=== PATIENT | male | born 1960 | race Caucasian/White ===

== ENCOUNTER 2021-10-27 17:33 | Inpatient (IN) | payer MEDICARE, OTHER ==
[~2021-10-27] VITALS: Ht 182.9 cm; Wt 91.9 kg
[2021-10-27] VITALS (9 sets, daily range): BP systolic 112–140; BP diastolic 68–100
[~2021-10-27 17:33] MED LIST: AEC81 PO; CARV12.580 PO
[2021-10-27 18:13] LABS: BASOPHILS % (AUTO) 0.6 % (0.0-5.0); EOSINOPHILS % (AUTO) 2.3 % (0.0-8.0); HEMATOCRIT 41.9 % (42-54); LYMPHOCYTES % (AUTO) 17.3 % (21.0-51.0); MEAN CORPUSCULAR HEMOGLOBIN 31.6 pg (27.0-33.0); MEAN CORPUSCULAR HGB CONC 32.9 g/dL (32.0-36.0); MEAN CORPUSCULAR VOLUME 95.9 fL (79-99); MONOCYTES % (AUTO) 8.3 % (3.0-13.0); NEUTROPHILS % (AUTO) 71.2 % (40.0-77.0); PLATELET COUNT (AUTO) 188 K/uL (130-400); RED BLOOD CELL COUNT(AUTO) 4.37 MIL/uL (4.50-6.20); RED CELL DISTRIBUTION WIDTH 16.4 % (11.0-15.5); WHITE BLOOD COUNT (AUTO) 10.1 K/uL (4.8-10.8)
[2021-10-27 18:40] LABS: INR 1.03 (0.85-1.15); PROTHROMBIN TIME 11.2 SEC (9.6-11.6)
[2021-10-27 18:41] LABS: PARTIAL THROMBOPLASTIN TIME 24.5 SEC (26.3-35.5)
[2021-10-27 18:45] LABS: B-TYPE NATRIURETIC PEPTIDE 2160 pg/mL (0-100)
[2021-10-27 18:46] LABS: CREATININE 1.9 mg/dL (0.5-1.5); MAGNESIUM 1.8 mg/dL (1.80-2.40); TOTAL PROTEIN, SERUM 6.7 g/dL (6.0-8.3)
[2021-10-27 19:21] LABS: APPEARANCE,URINE CLEAR (CLEAR); BILIRUBIN,URINE NEGATIVE (NEGATIVE); COLOR,URINE YELLOW (YELLOW); GLUCOSE, URINE (UA) NEGATIVE (NEGATIVE); KETONES,URINE NEGATIVE (NEGATIVE); LEUKOCYTE ESTERASE ,URINE NEGATIVE (NEGATIVE); NITRATE,URINE NEGATIVE (NEGATIVE); OCCULT BLOOD,URINE NEGATIVE (NEGATIVE); PH,URINE 5.5 (5.0-8.0); PROTEIN,URINE NEGATIVE (NEGATIVE)
[2021-10-27] MEDS ORDERED: DOPAMINE HCL 400 MG/D5%-WATER 250 ML IV SCH (20:00)
[2021-10-27] MEDS ORDERED: POTASSIUM CHLORIDE 20MEQ/100ML 100 ML IV PRN (20:00)
[2021-10-27] MEDS ORDERED: DiphenhydrAMINE HCL 50 MG/ML VIAL IV PRN (20:00)
[2021-10-27] MEDS ORDERED: ONDANSETRON 4MG INJ IV PRN (20:00)
[2021-10-27] MEDS ORDERED: ACETAMINOPHEN 325 MG TAB PO PRN ×2 (20:00)
[2021-10-27] MEDS ORDERED: LIDOCAINE HCL-MPF 1% 2ML VIAL IV PRN (20:00)
[2021-10-27] MEDS: FAMOTIDINE 20MG VIAL IV SCH (21:21)
[2021-10-27] MEDS: MORPHINE 2 MG SYG IVP PRN (22:00)
[2021-10-27] MEDS ORDERED: ATOR40TA69 PO (22:21)
[2021-10-27] MEDS ORDERED: BUME2TAB5 PO (22:21)
[2021-10-27] MEDS ORDERED: SPIR25TA6 PO (22:21)
[2021-10-27] MEDS ORDERED: SENN-180 PO (22:21)
[2021-10-27] MEDS ORDERED: OMEP40CA21 PO (22:21)
[2021-10-27] MEDS ORDERED: ALLO100T PO (22:21)
[2021-10-27] MEDS ORDERED: FLUT1BLS3 IH (22:21)
[2021-10-27] MEDS ORDERED: METO-408 PO (22:21)
[2021-10-27] MEDS ORDERED: GABA-529 PO (22:21)
[2021-10-28] VITALS (56 sets, daily range): BP systolic 82–137; BP diastolic 48–87
[2021-10-28] MEDS ORDERED: POTASSIUM CHLORIDE 10MEQ/100ML 100 ML IV PRN (01:00)
[2021-10-28] MEDS ORDERED: POTASSIUM CHLORIDE 10% ELIXIR 20 MEQ/15 ML UDCUP PO PRN (01:00)
[2021-10-28] MEDS: KCL 20 MEQ ERTAB PO PRN ×4 (01:05→10:12)
[2021-10-28] MEDS ORDERED: [UNRECOGNIZED DRUG - OTHER] PO PRN (08:00)
[2021-10-28] MEDS ORDERED: SENNOSIDES PO PRN ×2 (08:00→09:00)
[2021-10-28] MEDS ORDERED: DOCUSATE SODIUM PO PRN ×2 (08:00→09:00)
[2021-10-28] MEDS: FUROSEMIDE 40MG VIAL IV SCH ×2 (08:12→20:13)
[2021-10-28] MEDS: ASPIRIN 81 MG EC TAB PO SCH (08:13)
[2021-10-28] MEDS: ALLOPURINOL 100 MG TABLET PO SCH (08:13)
[2021-10-28] MEDS: METOPROLOL SUCCINATE 25 MG TAB.SR.24H PO SCH (08:13)
[2021-10-28] MEDS: SPIRONOLACTONE 25 MG TAB PO SCH (08:13)
[2021-10-28] MEDS: GABAPENTIN 100 MG CAPSULE PO SCH ×4 (08:14→20:13)
[2021-10-28] MEDS: TRELEGY PO SCH (08:15)
[2021-10-28] MEDS: DOBUTAMINE 250MG/D5 250ML 250 ML IV SCH (08:17)
[2021-10-28] MEDS ORDERED: CARVEDILOL 12.5 MG TABLET PO SCH (09:00)
[2021-10-28] MEDS ORDERED: NON-FORMULARY MEDICATION 1 EACH (Fluticasone/Umeclidin/Vilanter (Trelegy Ellipta 100-62.5- IH SCH (09:00)
[2021-10-28 13:00] LABS: MAGNESIUM 1.9 mg/dL (1.80-2.40); POTASSIUM 4.2 mmol/L (3.5-5.1)
[2021-10-28] MEDS: MAGNESIUM 2GM PREMIX 50ML 50 ML IV PRN (14:30)
[2021-10-28] MEDS ORDERED: ENOXAPARIN SODIUM 100 MG/1 ML SQ SCH (18:00)
[2021-10-28] MEDS: FAMOTIDINE 20MG VIAL IV SCH (20:13)
[2021-10-28] MEDS: ATORVASTATIN 40 MG TABLET PO SCH (20:13)
[2021-10-28] MEDS: MORPHINE 2 MG SYG IVP PRN (20:14)
[2021-10-29] VITALS (47 sets, daily range): BP systolic 82–164; BP diastolic 41–94
[2021-10-29] MEDS: DOBUTAMINE 250MG/D5 250ML 250 ML IV SCH ×2 (01:14→17:28)
[2021-10-29 03:49] LABS: EOSINOPHILS % (AUTO) 4.6 % (0.0-8.0); HEMATOCRIT 39.9 % (42-54); LYMPHOCYTES % (AUTO) 23.8 % (21.0-51.0); MEAN CORPUSCULAR HEMOGLOBIN 31.9 pg (27.0-33.0); MEAN CORPUSCULAR HGB CONC 32.3 g/dL (32.0-36.0); MEAN CORPUSCULAR VOLUME 98.5 fL (79-99); MONOCYTES % (AUTO) 9.2 % (3.0-13.0); PLATELET COUNT (AUTO) 161 K/uL (130-400); RED BLOOD CELL COUNT(AUTO) 4.05 MIL/uL (4.50-6.20); RED CELL DISTRIBUTION WIDTH 16.5 % (11.0-15.5); WHITE BLOOD COUNT (AUTO) 7.2 K/uL (4.8-10.8)
[2021-10-29 03:53] LABS: HEMOGLOBIN A1C 8.3 % (4.0-6.0)
[2021-10-29 04:11] LABS: POTASSIUM 4.1 mmol/L (3.5-5.1); THYROID STIMULATING HORMONE 5.94 uIU/mL (0.36-3.74); TOTAL PROTEIN, SERUM 6.5 g/dL (6.0-8.3)
[2021-10-29] MEDS ORDERED: POTASSIUM CHLORIDE 20MEQ/100ML 100 ML IV PRN (08:00)
[2021-10-29] MEDS ORDERED: DEXTROSE 50%-WATER 50 ML DISP.SYRIN IV PRN (08:00)
[2021-10-29] MEDS ORDERED: LIDOCAINE HCL-MPF 1% 2ML VIAL IV PRN (08:00)
[2021-10-29] MEDS ORDERED: GLUCAGON 1MG KIT 1 MG ML IM PRN (08:00)
[2021-10-29] MEDS ORDERED: POTASSIUM CHLORIDE 10% ELIXIR 20 MEQ/15 ML UDCUP PO PRN (08:00)
[2021-10-29] MEDS ORDERED: MAGNESIUM 2GM PREMIX 50ML 50 ML IV PRN (08:00)
[2021-10-29] MEDS: GABAPENTIN 100 MG CAPSULE PO SCH ×3 (08:20→20:15)
[2021-10-29] MEDS: ASPIRIN 81 MG EC TAB PO SCH (08:20)
[2021-10-29] MEDS: FUROSEMIDE 40MG VIAL IV SCH ×2 (08:20→20:15)
[2021-10-29] MEDS: SPIRONOLACTONE 25 MG TAB PO SCH (08:20)
[2021-10-29] MEDS: ALLOPURINOL 100 MG TABLET PO SCH (08:21)
[2021-10-29] MEDS: ENOXAPARIN SODIUM 100 MG/1 ML SQ SCH (08:21)
[2021-10-29] MEDS: TRELEGY PO SCH (08:32)
[2021-10-29] MEDS: METOPROLOL SUCCINATE 25 MG TAB.SR.24H PO SCH (09:14)
[2021-10-29] MEDS: INSULIN HUMULIN R 100 UNIT/ML 3ML SQ SCH ×3 (11:40→21:00)
[2021-10-29] MEDS: FAMOTIDINE 20MG VIAL IV SCH (20:15)
[2021-10-29] MEDS: ATORVASTATIN 40 MG TABLET PO SCH (20:15)
[2021-10-29] MEDS: MORPHINE 2 MG SYG IVP PRN (20:16)
[2021-10-30 00:44] VITALS: BP 107/55
[2021-10-30 04:30] VITALS: BP 97/49
[2021-10-30 06:34] LABS: HEMATOCRIT 40.8 % (42-54); MEAN CORPUSCULAR HEMOGLOBIN 31.7 pg (27.0-33.0); MEAN CORPUSCULAR HGB CONC 32.6 g/dL (32.0-36.0); MEAN CORPUSCULAR VOLUME 97.1 fL (79-99); RED BLOOD CELL COUNT(AUTO) 4.2 MIL/uL (4.50-6.20); RED CELL DISTRIBUTION WIDTH 16.8 % (11.0-15.5); WHITE BLOOD COUNT (AUTO) 6.1 K/uL (4.8-10.8)
[2021-10-30 06:40] LABS: CREATININE 1.8 mg/dL (0.5-1.5); POTASSIUM 3.3 mmol/L (3.5-5.1)
[2021-10-30 07:30] VITALS: BP 104/70
[2021-10-30] MEDS: INSULIN HUMULIN R 100 UNIT/ML 3ML SQ SCH ×4 (07:30→21:00)
[2021-10-30] MEDS: FUROSEMIDE 40MG VIAL IV SCH ×2 (09:55→20:57)
[2021-10-30] MEDS: DOBUTAMINE 250MG/D5 250ML 250 ML IV SCH (09:56)
[2021-10-30] MEDS: ASPIRIN 81 MG EC TAB PO SCH (09:58)
[2021-10-30] MEDS: ENOXAPARIN SODIUM 100 MG/1 ML SQ SCH (09:58)
[2021-10-30] MEDS: SPIRONOLACTONE 25 MG TAB PO SCH (09:58)
[2021-10-30] MEDS: GABAPENTIN 100 MG CAPSULE PO SCH ×3 (09:59→20:58)
[2021-10-30] MEDS: METOPROLOL SUCCINATE 25 MG TAB.SR.24H PO SCH ×2 (09:59→20:57)
[2021-10-30] MEDS: TRELEGY PO SCH (09:59)
[2021-10-30] MEDS: ALLOPURINOL 100 MG TABLET PO SCH (09:59)
[2021-10-30 12:00] VITALS: BP 95/69
[2021-10-30] MEDS: KCL 20 MEQ ERTAB PO PRN ×2 (14:21→18:56)
[2021-10-30 16:49] VITALS: BP 104/64
[2021-10-30 20:00] VITALS: BP 107/67
[2021-10-30] MEDS: ATORVASTATIN 40 MG TABLET PO SCH (20:57)
[2021-10-30] MEDS: FAMOTIDINE 20MG VIAL IV SCH (20:57)
[2021-10-30] MEDS: MORPHINE 2 MG SYG IVP PRN (21:25)
[2021-10-31] VITALS (7 sets, daily range): BP systolic 85–112; BP diastolic 51–75
[2021-10-31] MEDS: INSULIN HUMULIN R 100 UNIT/ML 3ML SQ SCH ×4 (06:43→20:09)
[2021-10-31] MEDS: MORPHINE 2 MG SYG IVP PRN ×3 (06:59→20:09)
[2021-10-31] MEDS: ENOXAPARIN SODIUM 100 MG/1 ML SQ SCH (07:59)
[2021-10-31] MEDS: FUROSEMIDE 40MG VIAL IV SCH (07:59)
[2021-10-31] MEDS: ALLOPURINOL 100 MG TABLET PO SCH (07:59)
[2021-10-31] MEDS: GABAPENTIN 100 MG CAPSULE PO SCH ×3 (08:00→20:08)
[2021-10-31] MEDS: SPIRONOLACTONE 25 MG TAB PO SCH (08:00)
[2021-10-31] MEDS: ASPIRIN 81 MG EC TAB PO SCH (08:00)
[2021-10-31] MEDS: METOPROLOL SUCCINATE 25 MG TAB.SR.24H PO SCH ×2 (08:00→20:08)
[2021-10-31] MEDS: TRELEGY PO SCH (08:00)
[2021-10-31 08:14] LABS: CREATININE 1.8 mg/dL (0.5-1.5); POTASSIUM 4.2 mmol/L (3.5-5.1)
[2021-10-31] MEDS ORDERED: VANCOMYCIN 1G/250ML KIT 250 ML IV SCH (09:00)
[2021-10-31] MEDS ORDERED: 0.9% NACL 250ML 250 ML ONE (09:53)
[2021-10-31] MEDS: FUROSEMIDE 40 MG TABLET PO SCH (16:57)
[2021-10-31] MEDS: ATORVASTATIN 40 MG TABLET PO SCH (20:08)
[2021-10-31] MEDS: FAMOTIDINE 20MG VIAL IV SCH (20:08)
[2021-10-31] MEDS: DOBUTAMINE 250MG/D5 250ML 250 ML IV SCH (20:19)
[2021-11-01] VITALS (11 sets, daily range): BP systolic 92–140; BP diastolic 55–80
[2021-11-01 03:48] LABS: HEMATOCRIT 41.9 % (42-54); MEAN CORPUSCULAR HEMOGLOBIN 31.5 pg (27.0-33.0); MEAN CORPUSCULAR HGB CONC 31.7 g/dL (32.0-36.0); MEAN CORPUSCULAR VOLUME 99.3 fL (79-99); RED BLOOD CELL COUNT(AUTO) 4.22 MIL/uL (4.50-6.20); RED CELL DISTRIBUTION WIDTH 17.2 % (11.0-15.5); WHITE BLOOD COUNT (AUTO) 5.8 K/uL (4.8-10.8)
[2021-11-01 03:58] LABS: INR 1.04 (0.85-1.15); PROTHROMBIN TIME 11.3 SEC (9.6-11.6)
[2021-11-01 03:59] LABS: PARTIAL THROMBOPLASTIN TIME 26.3 SEC (26.3-35.5)
[2021-11-01 04:00] LABS: POTASSIUM 4.5 mmol/L (3.5-5.1)
[2021-11-01] MEDS: INSULIN HUMULIN R 100 UNIT/ML 3ML SQ SCH ×4 (05:56→20:02)
[2021-11-01] MEDS ORDERED: VANCOMYCIN 1G VIAL IVPB ONE (07:00)
[2021-11-01] MEDS ORDERED: VANCOMYCIN 1G 1 GM in 0.9% NACL 250ML 250 ML IV PRN (08:00)
[2021-11-01] MEDS: SPIRONOLACTONE 25 MG TAB PO SCH (08:12)
[2021-11-01] MEDS: ALLOPURINOL 100 MG TABLET PO SCH (08:13)
[2021-11-01] MEDS: TRELEGY PO SCH (08:13)
[2021-11-01] MEDS: GABAPENTIN 100 MG CAPSULE PO SCH ×3 (08:13→20:05)
[2021-11-01] MEDS: ASPIRIN 81 MG EC TAB PO SCH (08:13)
[2021-11-01] MEDS: METOPROLOL SUCCINATE 25 MG TAB.SR.24H PO SCH ×2 (08:13→20:01)
[2021-11-01] MEDS: FUROSEMIDE 40 MG TABLET PO SCH ×2 (08:13→17:09)
[2021-11-01] MEDS: MORPHINE 2 MG SYG IVP PRN ×2 (10:48→20:07)
[2021-11-01] MEDS ORDERED: VANCOMYCIN 1G/250ML KIT 500 ML IV ONE (12:27)
[2021-11-01] MEDS ORDERED: BUPIVACAINE/PF 0.25% 30ML VIAL IJ ONE (12:27)
[2021-11-01] MEDS ORDERED: LIDOCAINE HCL 1% 20 ML VIAL ONE (12:27)
[2021-11-01] MEDS ORDERED: MEPERIDINE-PF 50 MG/ML SYG ONE (13:14)
[2021-11-01] MEDS ORDERED: MIDAZOLAM HCL 1 MG/ML 2ML VIAL ONE ×3 (13:14→13:48)
[2021-11-01] MEDS ORDERED: IODIXANOL 320 MG/ML 100 ML VIAL ONE (13:20)
[2021-11-01] MEDS ORDERED: MEPERIDINE-PF 25 MG/ML SYG ONE (13:48)
[2021-11-01] MEDS ORDERED: BACITRACIN 1 EACH PACKET TP ONE (14:32)
[2021-11-01 16:09] LABS: CREATININE 1.7 mg/dL (0.5-1.5); POTASSIUM 3.7 mmol/L (3.5-5.1)
[2021-11-01] MEDS: FAMOTIDINE 20MG VIAL IV SCH (20:00)
[2021-11-01] MEDS: ATORVASTATIN 40 MG TABLET PO SCH (20:01)
[2021-11-02] VITALS: BP 108/64
[2021-11-02 04:00] VITALS: BP 119/70
[2021-11-02 04:13] LABS: BASOPHILS % (AUTO) 0.5 % (0.0-5.0); EOSINOPHILS % (AUTO) 2.9 % (0.0-8.0); HEMATOCRIT 42.2 % (42-54); LYMPHOCYTES % (AUTO) 20.9 % (21.0-51.0); MEAN CORPUSCULAR HEMOGLOBIN 31.5 pg (27.0-33.0); MEAN CORPUSCULAR VOLUME 98.6 fL (79-99); MONOCYTES % (AUTO) 10.7 % (3.0-13.0); NEUTROPHILS % (AUTO) 64.6 % (40.0-77.0); PLATELET COUNT (AUTO) 151 K/uL (130-400); RED BLOOD CELL COUNT(AUTO) 4.28 MIL/uL (4.50-6.20); RED CELL DISTRIBUTION WIDTH 17.2 % (11.0-15.5); WHITE BLOOD COUNT (AUTO) 5.5 K/uL (4.8-10.8)
[2021-11-02 04:38] LABS: CREATININE 1.6 mg/dL (0.5-1.5); MAGNESIUM 1.9 mg/dL (1.80-2.40); PHOSPHORUS 3.6 mg/dL (2.5-4.9); POTASSIUM 3.7 mmol/L (3.5-5.1)
[2021-11-02] MEDS: KCL 20 MEQ ERTAB PO PRN (05:59)
[2021-11-02] MEDS: MAGNESIUM 2GM PREMIX 50ML 50 ML IV PRN (06:00)
[2021-11-02] MEDS: INSULIN HUMULIN R 100 UNIT/ML 3ML SQ SCH ×4 (06:09→21:10)
[2021-11-02 08:00] VITALS: BP 110/60
[2021-11-02] MEDS: ASPIRIN 81 MG EC TAB PO SCH (08:07)
[2021-11-02] MEDS: SPIRONOLACTONE 25 MG TAB PO SCH (08:07)
[2021-11-02] MEDS: FUROSEMIDE 40 MG TABLET PO SCH ×2 (08:08→17:00)
[2021-11-02] MEDS: GABAPENTIN 100 MG CAPSULE PO SCH ×3 (08:08→20:45)
[2021-11-02] MEDS: ALLOPURINOL 100 MG TABLET PO SCH (08:08)
[2021-11-02] MEDS: METOPROLOL SUCCINATE 25 MG TAB.SR.24H PO SCH ×2 (08:08→20:45)
[2021-11-02] MEDS: TRELEGY PO SCH (08:09)
[2021-11-02] MEDS: DOBUTAMINE 250MG/D5 250ML 250 ML IV SCH (08:21)
[2021-11-02 11:26] VITALS: BP 109/69
[2021-11-02] MEDS: HYDROCODONE/ACETAMINOPHEN 5/325 MG TAB PO PRN ×2 (14:23→20:45)
[2021-11-02 15:43] VITALS: BP 93/59
[2021-11-02 19:03] VITALS: BP 109/78
[2021-11-02] MEDS: FAMOTIDINE 20MG VIAL IV SCH (20:44)
[2021-11-02] MEDS: ATORVASTATIN 40 MG TABLET PO SCH (20:44)
[2021-11-03 00:03] VITALS: BP 102/78
[2021-11-03 03:03] VITALS: BP 96/63
[2021-11-03 03:59] LABS: BASOPHILS % (AUTO) 0.7 % (0.0-5.0); EOSINOPHILS % (AUTO) 3.8 % (0.0-8.0); HEMATOCRIT 44.2 % (42-54); LYMPHOCYTES % (AUTO) 25.5 % (21.0-51.0); MEAN CORPUSCULAR HEMOGLOBIN 31.8 pg (27.0-33.0); MEAN CORPUSCULAR HGB CONC 31.9 g/dL (32.0-36.0); MEAN CORPUSCULAR VOLUME 99.5 fL (79-99); MONOCYTES % (AUTO) 10.4 % (3.0-13.0); NEUTROPHILS % (AUTO) 59.2 % (40.0-77.0); PLATELET COUNT (AUTO) 162 K/uL (130-400); RED BLOOD CELL COUNT(AUTO) 4.44 MIL/uL (4.50-6.20); RED CELL DISTRIBUTION WIDTH 17.3 % (11.0-15.5); WHITE BLOOD COUNT (AUTO) 5.5 K/uL (4.8-10.8)
[2021-11-03 04:14] LABS: CREATININE 1.7 mg/dL (0.5-1.5); POTASSIUM 3.8 mmol/L (3.5-5.1)
[2021-11-03] MEDS: HYDROCODONE/ACETAMINOPHEN 5/325 MG TAB PO PRN ×2 (06:08→11:48)
[2021-11-03] MEDS: INSULIN HUMULIN R 100 UNIT/ML 3ML SQ SCH ×2 (06:17→11:30)
[2021-11-03 08:00] VITALS: BP 130/85
[2021-11-03] MEDS ORDERED: BISACODYL 5 MG TABLET.DR PO ONE (08:00)
[2021-11-03] MEDS: SPIRONOLACTONE 25 MG TAB PO SCH (08:38)
[2021-11-03] MEDS: ASPIRIN 81 MG EC TAB PO SCH (08:39)
[2021-11-03] MEDS: ALLOPURINOL 100 MG TABLET PO SCH (08:39)
[2021-11-03] MEDS: GABAPENTIN 100 MG CAPSULE PO SCH (08:39)
[2021-11-03] MEDS: TRELEGY PO SCH (08:40)
[2021-11-03] MEDS: METOPROLOL SUCCINATE 25 MG TAB.SR.24H PO SCH (08:40)
[2021-11-03] MEDS: FUROSEMIDE 40 MG TABLET PO SCH (08:40)
[2021-11-03 12:00] VITALS: BP 92/66
[2021-11-03] MEDS ORDERED: MAGN400T53 PO (13:18)
[2021-11-03] MEDS ORDERED: FURO40TA7 PO (13:18)
[2021-11-03] MEDS ORDERED: METO-408 PO (13:18)
[2021-11-03] MEDS ORDERED: SPIR25TA6 PO (13:18)
[2021-11-11] MEDS ORDERED: SENN8.6T20 PO (05:49)
== END 2021-11-03 13:55 | disposition home or self-care (01) | DRG 226 ==
LOC: EDH 17:33 → EDHIP 19:42 → 2BH 21:01 → 2AH 10-29 16:51
PROVIDERS: ADMIT Internal Medicine; ATTEND Internal Medicine
PROC: 5A09357 Assistance with Respiratory Ventilation, Less than 24 Consecutive Hours, Continuous Positive Airway Pressure (ICD-10-PCS; 2021-10-28)
PROC: 5A09357 Assistance with Respiratory Ventilation, Less than 24 Consecutive Hours, Continuous Positive Airway Pressure (ICD-10-PCS; principal; 2021-10-29)
PROC: 5A09357 Assistance with Respiratory Ventilation, Less than 24 Consecutive Hours, Continuous Positive Airway Pressure (ICD-10-PCS; 2021-10-30)
PROC: 5A09357 Assistance with Respiratory Ventilation, Less than 24 Consecutive Hours, Continuous Positive Airway Pressure (ICD-10-PCS; 2021-10-31)
PROC: 5A09357 Assistance with Respiratory Ventilation, Less than 24 Consecutive Hours, Continuous Positive Airway Pressure (ICD-10-PCS; 2021-11-01)
PROC: 0JPT3PZ Removal of Cardiac Rhythm Related Device from Trunk Subcutaneous Tissue and Fascia, Percutaneous Approach (ICD-10-PCS; 2021-11-01)
PROC: 5A09357 Assistance with Respiratory Ventilation, Less than 24 Consecutive Hours, Continuous Positive Airway Pressure (ICD-10-PCS; 2021-11-02)
PROC: 0JH608Z Insertion of Defibrillator Generator into Chest Subcutaneous Tissue and Fascia, Open Approach (ICD-10-PCS; 2021-11-02)
PROC: 02H63KZ Insertion of Defibrillator Lead into Right Atrium, Percutaneous Approach (ICD-10-PCS; 2021-11-02)
PROC: 02HL3KZ Insertion of Defibrillator Lead into Left Ventricle, Percutaneous Approach (ICD-10-PCS; 2021-11-02)
PROC: 02HK3KZ Insertion of Defibrillator Lead into Right Ventricle, Percutaneous Approach (ICD-10-PCS; 2021-11-02)
PROC: 5A09357 Assistance with Respiratory Ventilation, Less than 24 Consecutive Hours, Continuous Positive Airway Pressure (ICD-10-PCS; 2021-11-03)
DX: I13.0 Hypertensive heart and chronic kidney disease with heart failure and stage 1 through stage 4 chronic kidney disease, or unspecified chronic kidney disease (principal); I50.43 Acute on chronic combined systolic (congestive) and diastolic (congestive) heart failure; I47.1 Supraventricular tachycardia; I48.92 Unspecified atrial flutter; N17.9 Acute kidney failure, unspecified; I47.2 Ventricular tachycardia; R64 Cachexia; Z20.822 Contact with and (suspected) exposure to COVID-19; I42.8 Other cardiomyopathies; I48.0 Paroxysmal atrial fibrillation; E66.9 Obesity, unspecified; F17.210 Nicotine dependence, cigarettes, uncomplicated; D64.9 Anemia, unspecified; E11.22 Type 2 diabetes mellitus with diabetic chronic kidney disease; E11.51 Type 2 diabetes mellitus with diabetic peripheral angiopathy without gangrene; N18.9 Chronic kidney disease, unspecified; E78.00 Pure hypercholesterolemia, unspecified; Z66 Do not resuscitate; I25.5 Ischemic cardiomyopathy; I25.10 Atherosclerotic heart disease of native coronary artery without angina pectoris; I25.2 Old myocardial infarction; Z95.828 Presence of other vascular implants and grafts; Z95.5 Presence of coronary angioplasty implant and graft; Z95.810 Presence of automatic (implantable) cardiac defibrillator; Z83.3 Family history of diabetes mellitus; Z82.5 Family history of asthma and other chronic lower respiratory diseases; Z82.49 Family history of ischemic heart disease and other diseases of the circulatory system; Z82.3 Family history of stroke; Z82.0 Family history of epilepsy and other diseases of the nervous system; Z68.27 Body mass index [BMI] 27.0-27.9, adult
CPT/HCPCS: 33225; 33264; 36415; 71045; 71250; 74176; 80048; 80053; 80061; 81003; 82550; 82948; 83036; 83735; 83874; 83880; 84100; 84132; 84439; 84443; 84484; 85025; 85027; 85610; 85730; 87635; 87804; 93005; 93306; 93356; 94660; 97039; 99156; 99157; C1769; C1882; C1900; G0378; J1250; J1265; J1650; J1815; J1940; J2175; J2250; J3370; J3475; J3480; J3490; J7050; Q9967